=== PATIENT | female | born 1980 | race Caucasian/White ===

== ENCOUNTER → 2016-07-01 | Outpatient (CLI) | payer OTHER ==
[2015-02-05 02:59] VITALS: BP 158/98
[~2016-07-01] MED LIST: DIPH25CA58 PO; EPIN0.3A4 IJ; FAMO-63 PO; HYDR-971 PO; ONDA8TAB12 PO; PRED20TA PO
--- NOTE | 2016-07-01 15:46 | RAD ---
Lumbar spine, 2 views, 07/01/2016: History: Left-sided pain Surgical clips are present in the right upper quadrant. The abdominal gas pattern is unremarkable. No free air is seen in the abdomen. There is no evidence of organomegaly. No abnormal abdominal calcifications are seen. IMPRESSION: No acute abdominal abnormality is detected.
== END | disposition home or self-care (01) ==
LOC: DXRAD 10:27
PROVIDERS: ATTEND Nurse Practitioner Family
DX: R10.32 Left lower quadrant pain (principal); K59.00 Constipation, unspecified
CPT/HCPCS: 74020

== ENCOUNTER 2020-09-23 14:53 | Emergency (ER) | payer SELFPAY ==
[~2020-09-23] VITALS: Ht 157.5 cm; Wt 95.0 kg
[~2020-09-23 14:53] MED LIST changes: +HYDR-3165 PO; -HYDR-971 PO
[2020-09-23] MEDS ORDERED: IV NORMAL SALINE 1,000ML 1,000 ML IV ONE (16:45)
[2020-09-23] MEDS ORDERED: ONDANSETRON PF 4 MG/2 ML VIAL. IVP ONE (16:45)
[2020-09-23 16:55] LABS: BASO % 1 % (0-3); EOS # 0.2 x10^3/uL (0.0-0.7); EOS % 2 % (0-3); HEMATOCRIT 41.4 % (36.0-47.0); LYMPH # 1.4 x10^3/uL (1.0-4.8); LYMPH % 21 % (24-48); MEAN CORPUSCULAR HEMOGLOBIN 32 pg (25-35); MEAN CORPUSCULAR HGB CONC 34 g/dL (31-37); MEAN CORPUSCULAR VOLUME 95 fL (79-100); MONO # 0.5 x10^3/uL (0.0-1.1); MONO % 7 % (0-9); NEUT # 4.6 x10^3uL (1.8-7.7); NEUT % 68 % (31-73); PLATELET COUNT 212 x10^3/uL (140-400); RED BLOOD COUNT 4.36 x10^6/uL (3.50-5.40); RED CELL DISTRIBUTION WIDTH 13.8 % (11.5-14.5); WHITE BLOOD COUNT 6.7 x10^3/uL (4.0-11.0)
[2020-09-23 16:58] LABS: CALCIUM 8.6 mg/dL (8.5-10.1); CREATININE 0.9 mg/dL (0.6-1.0); GFR 70.1; POTASSIUM 3.5 mmol/L (3.5-5.1)
[2020-09-23] MEDS ORDERED: IOHEXOL 300 MG/ML 75 ML VIAL. IV ONE (17:00)
[2020-09-23 17:05] LABS: ALBUMIN 3.7 g/dL (3.4-5.0); ALBUMIN/GLOBULIN RATIO 1.3 (1.0-1.7); TOTAL BILIRUBIN 0.7 mg/dL (0.2-1.0); TOTAL PROTEIN 6.6 g/dL (6.4-8.2)
--- NOTE | 2020-09-23 17:43 | RAD ---
PQRS Compliance Statement: One or more of the following individualized dose reduction techniques were utilized for this examinat ion: 1. Automated exposure control 2. Adjustment of the mA and/or kV according to patient size 3. Use of iterative reconstruction technique CT ABDOMEN+PELVIS W Clinical Indication: Reason: abdomen pain / Spl. Instructions: / History: Comparison: CT abdomen and pelvis without contrast February 05, 2015. Technique: Helical CT imaging of the abdomen and pelvis is performed after 75 cc of Omnipaque 300 IV contrast. Oral contrast not administered. Findings: Lung bases are clear. Cardiac size normal. Cholecystectomy. The liver, spleen, pancreas, adrenal glands, abdominal aorta, and kidneys are normal . There is a moderate-sized fat-containing umbilical hernia that has increased in size from prior rodolfo dy. There is a wide neck. There is no obvious abnormality of the stomach. The appendix is normal. There is no small bowel obstr uction. The sigmoid colon and descending colon are decompressed accentuating the wall thickness and l imiting evaluation. No colon wall thickening is identified. There is no abdominal adenopathy or free fluid. Urinary bladder is normal. Uterus is anteverted. Small bilateral ovarian follicles are seen, likely p hysiologic. There is no pelvic free fluid. 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 IMPRESSION: No acute abdominal or pelvic abnormality. Electronically signed by: Mele Wright MD (09/23/2020 5:41 PM) [facility]
[2020-09-23 18:04] LABS: BILIRUBIN,URINE SMALL (NEG); CLARITY,URINE CLEAR; COLOR,URINE AMBER; GLUCOSE,URINE NEG (NEG); NITRITE,URINE NEG (NEG); UROBILINOGEN,URINE 0.2 mg/dL (0.2 mg/dL)
[2020-09-23 18:10] LABS: BACTERIA,URINE 0 /HPF (0-FEW); SQUAMOUS EPITHELIAL CELL,UR FEW /LPF; WBC,URINE 0 /HPF (0-4)
--- NOTE | 2020-09-23 18:38 | PHYS DOC ---
Past History Past Medical History: Pancreatitis Past Surgical History: , Tubal ligation Alcohol Use: None Drug Use: Marijuana Adult General Chief Complaint Chief Complaint: ABDOMINAL PAIN HPI HPI Patient is a 40-year-old female who presents to the emergency department with a chief complaint of "I am having a pancreatitis flareup "patient states that she has a history of pancreatitis, states that she does not drink alcohol or use illicit drugs. Patient states that her last pancreatitis flare was in 2016. Patient reports nausea vomiting and diarrhea with left upper quadrant pain for the past 5 days. Patient states she cannot keep anything down. Patient states she is only retching at this point. Patient reports her pain at a 10, denies fever or chills, denies chest pain or chest congestion or heart palpitations. Patient denies nasal congestion or sore throat. Patient states she has not had a normal BM since 5 days ago which he started having diarrhea. Patient denies any other physical complaints or physical concerns. States she takes no prescription medications at home, has no primary care physician. Patient states that she smokes cigarettes occasionally and smokes marijuana for nausea control. Review of Systems Review of Systems 14 body systems of review of systems have been reviewed. See HPI for pertinent positives and negative responses, otherwise all other systems are negative, nonpertinent or noncontributory. Current Medications Current Medications Current Medications Medications (Trade) Dose Ordered Sig/Josy Start Time Stop Time Status Last Admin Dose Admin Fentanyl Citrate (Fentanyl 2ml Vial) 75 mcg 1X ONCE 09/23/20 16:45 09/23/20 17:09 DC 09/23/20 17:26 75 MCG Iohexol (Omnipaque 300 Mg/ml) 75 ml 1X ONCE 09/23/20 17:00 09/23/20 17:09 DC Ondansetron HCl (Zofran) 4 mg 1X ONCE 09/23/20 16:45 09/23/20 17:09 DC 09/23/20 17:01 4 MG Sodium Chloride 1,000 ml @ 1,000 mls/hr 1X ONCE 09/23/20 16:45 09/23/20 17:44 DC 09/23/20 17:01 1,000 MLS/HR Allergies Allergies Allergies Coded Allergies Type Severity Reaction Last Updated Verified Penicillins Allergy Unknown 09/23/20 Yes acetaminophen Allergy Unknown 02/08/15 No hydrocodone Allergy Unknown 02/08/15 No ibuprofen Allergy Unknown 09/23/20 Yes morphine Allergy Unknown 09/23/20 Yes oxycodone Allergy Unknown 09/23/20 Yes tramadol Allergy Unknown 09/23/20 Yes Physical Exam Physical Exam Constitutional: Well developed, well nourished, no acute distress, non-toxic appearance. 40-year-old female in no apparent distress, patient's complaint of pain exceeds physical appearance and presentation. HENT: Normocephalic, atraumatic, bilateral external ears normal, oropharynx moist, no oral exudates, nose normal. Eyes: PERRLA, EOMI, conjunctiva normal, no discharge. Neck: Normal range of motion, no tenderness, supple, no stridor. Cardiovascular:Heart rate regular rhythm, no murmur, heart sounds S1-S2 to auscultation. The patient is not tachycardic. Lungs & Thorax: Bilateral breath sounds clear to auscultation all lung lees, no adventitious lung sounds appreciated. Abdomen: Bowel sounds normal, soft, no tenderness, no masses, no pulsatile masses. Pain with palpation to left upper abdomen, abdomen is soft, no ecchymos is or discoloration of the abdomen. Unable to appreciate patient's reported umbilical hernia. Negative Quintana sign, negative psoas sign, negative rebound tenderness, negative McBurney's point tenderness. Skin: Warm, dry, no erythema, no rash. Back: No tenderness, no CVA tenderness. Extremities: No tenderness, no cyanosis, no clubbing, ROM intact, no edema. Neurologic: Alert and oriented X 3, normal motor function, normal sensory function, no focal deficits noted. Psychologic: Affect normal, judgement normal, mood normal. Current Patient Data Vital Signs Vital Signs Date Time Temp Pulse Resp B/P (MAP) Pulse Ox O2 Delivery O2 Flow Rate FiO2 09/23/20 18:02 56 18 117/69 (85) 98 Room Air 09/23/20 16:06 99.4 Lab Results Laboratory Tests Test 09/23/20 16:32 09/23/20 17:40 09/23/20 17:50 White Blood Count 6.7 x10^3/uL (4.0-11.0) Red Blood Count 4.36 x10^6/uL (3.50-5.40) Hemoglobin 14.0 g/dL (12.0-15.5) Hematocrit 41.4 % (36.0-47.0) Mean Corpuscular Volume 95 fL (79-100) Mean Corpuscular Hemoglobin 32 pg (25-35) Mean Corpuscular Hemoglobin Concent 34 g/dL (31-37) Red Cell Distribution Width 13.8 % (11.5-14.5) Platelet Count 212 x10^3/uL (140-400) Neutrophils (%) (Auto) 68 % (31-73) Lymphocytes (%) (Auto) 21 % (24-48) L Monocytes (%) (Auto) 7 % (0-9) Eosinophils (%) (Auto) 2 % (0-3) Basophils (%) (Auto) 1 % (0-3) Neutrophils # (Auto) 4.6 x10^3uL (1.8-7.7) Lymphocytes # (Auto) 1.4 x10^3/uL (1.0-4.8) Monocytes # (Auto) 0.5 x10^3/uL (0.0-1.1) Eosinophils # (Auto) 0.2 x10^3/uL (0.0-0.7) Basophils # (Auto) 0.0 x10^3/uL (0.0-0.2) Sodium Level 142 mmol/L (136-145) Potassium Level 3.5 mmol/L (3.5-5.1) Chloride Level 107 mmol/L (98-107) Carbon Dioxide Level 22 mmol/L (21-32) Anion Gap 13 (6-14) Blood Urea Nitrogen 8 mg/dL (7-20) Creatinine 0.9 mg/dL (0.6-1.0) Estimated GFR (Cockcroft-Gault) 70.1 BUN/Creatinine Ratio 9 (6-20) Glucose Level 85 mg/dL (70-99) Calcium Level 8.6 mg/dL (8.5-10.1) Total Bilirubin 0.7 mg/dL (0.2-1.0) Aspartate Amino Transferase (AST) 40 U/L (15-37) H Alanine Aminotransferase (ALT) 74 U/L (14-59) H Alkaline Phosphatase 68 U/L (46-116) Total Protein 6.6 g/dL (6.4-8.2) Albumin 3.7 g/dL (3.4-5.0) Albumin/Globulin Ratio 1.3 (1.0-1.7) Lipase 77 U/L (73-393) Urine Collection Type Unknown Urine Color Loni Urine Clarity Clear Urine pH 6.0 Urine Specific [place] 1.020 Urine Protein Neg (NEG-TRACE) Urine Glucose (UA) Neg mg/dL (NEG) Urine Ketones (Stick) 40 mg/dL (NEG) Urine Blood Small (NEG) Urine Nitrite Neg (NEG) Urine Bilirubin Small (NEG) Urine Urobilinogen Dipstick 0.2 mg/dL (0.2 mg/dL) Urine Leukocyte Esterase Neg (NEG) Urine RBC 1-2 /HPF (0-2) Urine WBC 0 /HPF (0-4) Urine Squamous Epithelial Cells Few /LPF Urine Bacteria 0 /HPF (0-FEW) POC Urine HCG, Qualitative hcg negative (Negative) EKG EKG [] Radiology/Procedures Radiology/Procedures [] Heart Score C/O Chest Pain: No Risk Factors: Risk Factors: DM, Current or recent (<one month) smoker, HTN, HLP, family history of CAD, obesity. Risk Scores: Risk Factors: DM, Current or recent (<one month) smoker, HTN, HLP, family history of CAD, obesity. Course & Med Decision Making Course & Med Decision Making Pertinent Labs and Imaging studies reviewed. (See chart for details) 40-year-old female, vital signs reviewed, presents emergency department with a chief complaint of a pancreatitis flareup. Patient's physical presentation was unremarkable, however with patient's complaint of pain will order acute abdomen work-up. Will give IV fentanyl, and an IV Zofran for nausea and pain of 10 out of 10. The patient's urine was not infected, she is not , patient's lab work was unremarkable, patient's lipase was within normal limits. The patient CT abdomen pelvis with IV contrast was nonconcerning for acute process. Upon reexamination of the patient, the patient remains nontoxic in appearance, in no apparent distress, states that her pain is feeling better since her IV pain medicine was given. Patient states she would like to go home with a prescription for Zofran. Discussed with patient strict need for follow-up with a PCP to further work-up and investigate her abdominal pain complaints. The patient did not have any retching, vomiting, or diarrhea during her ER stay. Patient gave verbal understanding of discharge home instructions, follow-up with PCP tomorrow, return to ER precautions and concerns, patient was discharged home without incident. Diagnosis abdominal pain of unknown etiology. Dragon Disclaimer Vandanaon Disclaimer This electronic medical record was generated, in whole or in part, using a voice recognition dictation system. Departure Departure: Impression: Primary Impression: Abdominal pain Disposition: HOME / SELF CARE / HOMELESS Condition: GOOD Referrals: PCP,NO (PCP) Patient Instructions: Abdominal Pain Additional Instructions: You were seen today in the emergency department with complaints of nausea vomiting diarrhea and abdominal pain. You did not have any vomiting or diarrhea during your ER stay, your urine was not infected, you are not , the CT of your abdomen did not show any concerning findings, the lab work that was drawn today did not have any abnormalities and was nonconcerning. Please follo w-up with your primary care physician for ongoing evaluation of your abdominal pain. You may use any primary care provider that you want. You may consider using [facility] [place] [facility] [place] [address] and [facility] area code [id number], telephone number is [phone]. Please call Thursday for an appointment. I am prescribing you Zofran for your intermittent nausea. Please return to the emergency department for worsening symptoms or other concerns. EMERGENCY DEPARTMENT GENERAL DISCHARGE INSTRUCTIONS Thank you for coming to [facility] (ED) today and trusting us with you care. We trust that you had a positivie experience in our Emergency Department. If you wish to speak to the department management, you may call the director at [phone]. YOUR FOLLOW UP INSTRUCTIONS ARE FOLLOWS: 1. Do you have a private Doctor? If you do not have a private doctor, please ask for a resource list of physicians or clinics that may be able to assist you with follow up care. 2. The Emergency Physician has interpreted your x-rays. The X-Ray specialist will also review them. If there is a change in the findings, you will be notified in 48 hours when at all possible. 3. A lab test or culture has been done, your results will be reviewed and you will be notified if you need a change in treatment. ADDITIONAL INSTRUCTIONS AND INFORMATION: 1. Your care today has been supervised by a physician who is specially trained in emergency care. Many problems require more than one evaluation for a complete diagnosis and treatment. We recommend that you schedule your follow up appointment as recommended to ensure complete treatment of you illness or injury. If you are unable to obtain follow up care and continue to have a problem, or if your condition worsens, we recommend that you return to the ED. 2. We are not able to safely determine your condition over the phone nor are we able to give sound medical advice over the phone. For these safety reasons, if you call for medical advice we will ask you to come to the ED for further evaluation. 3. If you have any questions regarding these discharge instructions please call the ED at [phone]. SAFETY INFORMATION: In the interest of safety, wellness, and injury prevention; we encourage you to wear your sealbelt, if you smoke; quite smoking, and we encourage family to use a protective helmet for bicycling and other sporting events that present an increased risk for head injury. IF YOUR SYMPTOMS WORSEN OR NEW SYMPTOMS DEVELOP, OR YOU HAVE CONCERNS ABOUT YOUR CONDITION; OR IF YOUR CONDITION WORSENS WHILE YOU ARE WAITING FOR YOUR FOLLOW UP AP POINTMENT; EITHER CONTACT YOUR PRIMARY CARE DOCTOR, THE PHYSICIAN WHOSE NAME AND NUMBER YOU WERE GIVEN, OR RETURN TO THE ED IMMEDIATELY. Scripts Ondansetron (ONDANSETRON ODT) 4 Mg Tab.rapdis 1 TAB PO PRN Q6-8HRS for NAUSEA, #16 TAB 0 Refills Prov: ALLIE AGGARWAL APRN 09/23/20 Problem Qualifiers Primary Impression: Abdominal pain Abdominal location: right upper quadrant Qualified Codes: R10.11 - Right upper quadrant pain ALLIE AGGARWAL APRN Sep 23, 2020 18:38
[2020-09-23] MEDS ORDERED: ONDA4TAB12 PO (18:48)
[2020-09-23 19:08] VITALS: BP 120/73
== END 2020-09-23 19:12 | disposition home or self-care (01) ==
LOC: ER 14:53
DX: R10.11 Right upper quadrant pain (principal); Z88.0 Allergy status to penicillin; Z88.6 Allergy status to analgesic agent; Z88.8 Allergy status to other drugs, medicaments and biological substances; Z88.5 Allergy status to narcotic agent
CPT/HCPCS: 36415; 74177; 80053; 81001; 81025; 83690; 85025; 96361; 96374; 96375; 99285; J2405; J3010; J7030

== ENCOUNTER 2020-09-25 04:20 | Emergency (ER) | payer SELFPAY ==
[~2020-09-25] VITALS: Ht 157.5 cm; Wt 95.9 kg
[~2020-09-25 04:20] MED LIST changes: +ONDA4TAB12 PO
[2020-09-25] MEDS ORDERED: OXYC-325 PO (04:57)
[2020-09-25] MEDS ORDERED: ONDA4TAB7 PO (04:57)
--- NOTE | 2020-09-25 04:59 | PHYS DOC ---
Past History Past Medical History: Pancreatitis Past Surgical History: , Tubal ligation Alcohol Use: None Drug Use: Marijuana Adult General Chief Complaint Chief Complaint: ABDOMINAL PAIN HPI HPI Patient is a 40-year-old female with a past medical history significant for chronic abdominal cramping and discomfort as well as nausea who presents with abdominal cramping and nausea. States she was here a day and a half ago and had a complete work-up including labs, urine and a CAT scan and everything was negative. States he has had similar work-ups in the past and everything is always negative. States she has these bouts of abdominal cramping and nausea that come on a couple times a month and have been for several years and nobody is found anything. States that she does not have insurance and does not have a primary care doctor and requested information on any free clinics in the area. Denies any recent trauma, travels, illnesses, fevers, chest pain, shortness of breath, dysuria, hematuria or blood in the stool. Denies any history of STIs, vaginal bleeding, vaginal discharge or vaginal pain. Denies any dyspareunia. Denies any alcohol or drug use. Denies any known ill contacts. States that she thinks she just needs some pain and nausea medicine and she will be fine and does not want any labs drawn or imaging done since she just had it done. Review of Systems Review of Systems Review of systems otherwise unremarkable except noted in HPI Allergies Allergies Allergies Coded Allergies Type Severity Reaction Last Updated Verified Penicillins Allergy Unknown 09/23/20 Yes acetaminophen Allergy Unknown 02/08/15 No hydrocodone Allergy Unknown 02/08/15 No ibuprofen Allergy Unknown 09/23/20 Yes morphine Allergy Unknown 09/23/20 Yes oxycodone Allergy Unknown 09/23/20 Yes tramadol Allergy Unknown 09/23/20 Yes Physical Exam Physical Exam Constitutional: Well developed, well nourished, no acute distress, non-toxic appearance. [] HENT: Normocephalic, atraumatic, bilateral external ears normal, oropharynx moist, no oral exudates, nose normal. [] Eyes: conjunctiva normal, no discharge. [] Neck: Normal range of motion, no tenderness, supple, no stridor. [] Cardiovascular:Heart rate regular rhythm, no murmur [] Lungs & Thorax: Bilateral breath sounds clear to auscultation [] Abdomen: Bowel sounds normal, soft, no tenderness, no masses, no pulsatile masses. [] Skin: Warm, dry, no erythema, no rash. [] Back: No tenderness, no CVA tenderness. [] Extremities: No tenderness, no cyanosis, no clubbing, ROM intact, no edema. [] Neurologic: Alert and oriented X 3, normal motor function, normal sensory function, no focal deficits noted. [] Psychologic: Affect normal, judgement normal, mood normal. [] EKG EKG [] Radiology/Procedures Radiology/Procedures [] Heart Score C/O Chest Pain: No Risk Factors: Risk Factors: DM, Current or recent (<one month) smoker, HTN, HLP, family history of CAD, obesity. Risk Scores: Risk Factors: DM, Current or recent (<one month) smoker, HTN, HLP, family history of CAD, obesity. Course & Med Decision Making Course & Med Decision Making Patient is a 40-year-old female who presents with abdominal cramping and nausea Vital signs not concerning. Physical exam noted above. Patient given nausea medicine and pain medicine via IV. Patient was here 2 days ago with full work-up including CT scan and was reassuring. Patient stated that she did not want to go through all that again and did not want any labs drawn or imaging and just wanted some pain and nausea medicine so she could go home. On reassessment patient feeling much better, with symptoms resolved and requesting to be discharged home. Sent home with nausea and pain medicine. Given Zofran and Percocet. Patient stated she is not sure what Percocet/oxycodone is on her allergy list as she has taken it before. Patient given contact information for local primary care physicians and free clinics. Discussed the need to follow-up with her primary care physician discussed the need for gastrointestinal work-up and colonoscopy. Gave strict return precaut ions to the ED. Patient grateful, verbalized understanding and agreed with plan of discharge. [] Dragon Disclaimer Dragon Disclaimer This electronic medical record was generated, in whole or in part, using a voice recognition dictation system. Departure Departure: Impression: Primary Impression: Abdominal cramping Additional Impression: Nausea Disposition: HOME / SELF CARE / HOMELESS Condition: GOOD Referrals: PCP,NO (PCP) STACEY COYLE MD Patient Instructions: Abdominal Pain, Nausea, Adult Additional Instructions: Thank you for coming into the emergency department tonight and allowing us to take care of you. You were given pain and nausea medicine per your request and no other work-up was done per your request and discussion as you were just here and had all that done. You are given contact information for local primary care physicians and free clinics. As discussed it is very important for you to contact them, to discuss your multiple ED visits and chronic abdominal cramping and need for further evaluation and treatment by a specialist, probably a return clerk that can perform a colonoscopy. Over the next several days please keep your diet clear and light as discussed not eating anything heavy to allow some bowel rest. Please refrain from any alcohol or drug use. Please use your prescription Zofran and oxycodone sparingly and only for breakthrough nausea or pain. Per discussion you stated that you were not allergic to oxycodone and have taken it before. Please come back to the emergency departmen t immediately with new or concerning symptoms as discussed. Scripts Oxycodone HCl/Acetaminophen (Percocet 5-325 mg Tablet) 1 Each Tablet 1 TAB PO PRN BID PRN for abdominal pain MDD 2 Tablet(s) for 5 Days, #10 TAB 0 Refills Prov: BENNY PUENTE MD 09/25/20 Ondansetron Hcl (ZOFRAN) 4 Mg Tablet 1 TAB PO PRN Q6HRS PRN for NAUSEA, #20 TAB Prov: BENNY PUENTE MD 09/25/20 Problem Qualifiers BENNY PUENTE MD Sep 25, 2020 04:59
[2020-09-25] MEDS ORDERED: ONDANSETRON PF 4 MG/2 ML VIAL. IVP ONE (05:00)
[2020-09-25] MEDS ORDERED: PROCHLORPERAZINE 10 MG/2 ML VIAL. IV ONE (05:00)
[2020-09-25 05:17] VITALS: BP 116/82
== END 2020-09-25 05:18 | disposition home or self-care (01) ==
LOC: ER 04:20
DX: R10.9 Unspecified abdominal pain (principal); R11.0 Nausea; Z98.890 Other specified postprocedural states; Z98.51 Tubal ligation status; Z88.0 Allergy status to penicillin; Z88.5 Allergy status to narcotic agent; Z88.8 Allergy status to other drugs, medicaments and biological substances
CPT/HCPCS: 96374; 96375; 99284; J0780; J2405; J3010

== ENCOUNTER → 2021-06-21 | Outpatient (CLI) | payer OTHER ==
[~2021-06-21] MED LIST changes: +ONDA4TAB7 PO; +OXYC-325 PO
--- NOTE | 2021-06-21 12:41 | RAD ---
EXAMINATION: DG UPPER GI SERIES AND SMALL BOWEL_WITHOUT AIR CONTRAST 06/21/2021 9:09 AM HISTORY: Nausea for years. COMPARISON: None. TECHNIQUE: The patient swallowed effervescent crystals followed by thick and thin barium upper GI ser ies with small bowel follow-through was performed per routine protocol. FINDINGS: Upper GI series: The stomach and duodenum are normal in morphology. The esophagus is normal morphology. No mucosal abn ormality or evidence of mass. Normal esophageal motility. There is mild gastroesophageal reflux noted during the exam. No hiatal hernia. Small bowel follow-through: The stomach, and small bowel are normal in morphology. Contrast reaches t he colon by 65 minutes. No evidence of small bowel bowel obstruction or stenosis. Total fluoroscopic time: 2.5 minutes. 11 fluoroscopic images and 1 cine clip saved. IMPRESSION: 1. Mild gastroesophageal reflux. Otherwise normal upper GI series. 2. Normal small bowel follow-through with small bowel transit time of 65 minutes. Electronically signed by: Kezia Brooks MD (06/21/2021 12:38 PM) [id number]
== END ==
LOC: DXRAD 08:57
PROVIDERS: ATTEND Nurse Practitioner Primary Care
DX: K21.9 Gastro-esophageal reflux disease without esophagitis (principal); R11.0 Nausea
CPT/HCPCS: 74245; 74246; 74248

== ENCOUNTER 2021-09-07 16:22 | Emergency (ER) | payer OTHER ==
[~2021-09-07] VITALS: Ht 157.5 cm; Wt 95.9 kg
[2021-09-07 16:22] VITALS: BP 133/80
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
[2021-09-07] MEDS ORDERED: oxyCODONE/APAP 5/325 1 TAB TABLET ONE (17:56)
[2021-09-07] MEDS ORDERED: oxyCODONE/APAP 5/325 1 TAB TABLET PO ONE (18:00)
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
== END 2021-09-07 19:09 | disposition home or self-care (01) ==
LOC: ER 16:22
DX: R51.9 Headache, unspecified (principal); M25.512 Pain in left shoulder; M25.561 Pain in right knee; Z88.0 Allergy status to penicillin; Z88.5 Allergy status to narcotic agent; Z88.6 Allergy status to analgesic agent; Z88.8 Allergy status to other drugs, medicaments and biological substances; V89.2XXA Person injured in unspecified motor-vehicle accident, traffic, initial encounter; Y93.89 Activity, other specified; Y92.89 Other specified places as the place of occurrence of the external cause; Y99.8 Other external cause status
CPT/HCPCS: 70450; 72125; 73030; 73562; 99284